=== PATIENT | male | born 1965 | race Caucasian/White ===

== ENCOUNTER 2018-11-16 13:18 | Day surgery (SDC) | payer BC ==
[2018-11-12 16:06] VITALS: BMI 28.8
[~2018-11-16 13:18] MED LIST: LACTATED RINGERS 1,000 ML IV SCH; LIDOCAINE 1% 20 ML VIAL (10MG/ML) FOR IV START INTRADERMA PRN
[2018-11-16 13:35] VITALS: TEMP 97.4
[2018-11-16] MEDS ORDERED: LIDOCAINE 1% 20 ML VIAL (10MG/ML) FOR IV START INTRADERMA ONE (13:40)
[2018-11-16] MEDS ORDERED: LACTATED RINGERS 1,000 ML IV ONE ×2 (13:40)
[2018-11-16] MEDS ORDERED: PROPOFOL 10 MG/ML 20 ML VIAL IV ONE (14:21)
[2018-11-16] MEDS ORDERED: fentaNYL (PF) 50 MCG/ML 2 ML AMP ONE (14:21)
[2018-11-16] MEDS ORDERED: MIDAZOLAM 2 MG/2 ML VIAL ONE (14:21)
[2018-11-16] MEDS ORDERED: LIDOCAINE 1% INJ 10MG/ML (20 ML MDV) ONE (14:21)
[2018-11-16 15:02] VITALS: RESP 16
--- NOTE | 2018-11-16 15:05 | P.PCN ---
Date of Procedure: 11/16/18 Description of Procedure: Brief history: Patient is a pleasant scheduled for an elective upper endoscopy as well as colonoscopy as a part of evaluation of GERD and screening for malignant neoplasm of the colon. He reports a long-standing history of reflux disease currently controlled on Protonix daily, for which she takes an additional omeprazole if he is having worsening symptoms. Last EGD was in 2009. The patient also undergoing high risk colon cancer screening due to family history of colon cancer in his brother diagnosed in his 50s. Last colonoscopy was in 2009 as well. Denies any change in bowel habits, for which she reports a history of diarrhea since the age of [age] years old. Currently he takes Imodium daily. No blood per rectum. Procedure performed: Esophagogastroduodenoscopy with biopsy Colonoscopy with polypectomy and biopsy Estimated blood loss: Minimal. Preoperative diagnosis: GERD, high risk colon cancer screening, family history of colon cancer, last colonoscopy in 2009 Anesthesia: MAC Procedure: After informed consent was obtained from the patient was brought into the endoscopy unit and IV sedation was administered by anesthesia under continuous monitoring. Initially upper endoscopy was done. The Olympus GF 190 video endoscope was inserted inserted into the mouth and esophagus intubated without any difficulty and was gradually advanced into the stomach and duodenum and carefully examined. The bulb and second part of the duodenum appeared normal, with biopsies taken to rule out celiac disease. The scope was then withdrawn into the stomach adequately insufflated with air and upon careful examination the antrum and body, cardia and fundus appeared normal, except for mild scattered erythema in the antrum and body suggestive of mild gastritis with biopsies taken. The scope was then withdrawn into the esophagus. The GE junction was located at 40 cm to the incisors, with biopsies taken. It appeared regular with no erythema erosions or ulcerations. Rest of the esophagus appeared normal. Patient tolerated the procedure well. At this time the patient continued to remain sedation. Initial digital rectal examination was normal. Olympus CF 190 video colonoscope was then inserted into the rectum and gradually advanced to the cecum without any difficulty. The terminal ileum was intubated, appeared normal and biopsies were taken. Careful examination was performed as the scope was gradually being withdrawn. The prep was excellent. The cecum, ascending colon, transverse colon, descending colon, sigmoid colon and rectum appeared normal. 2 diminutive polyps measuring 2 mm removed from the ascending colon and descending colon with cold forcep polypectomy. Mild left-sided diverticulosis. Random biopsies taken of the right colon and left colon. Retroflexion was performed in the rectum and no lesions were noted, patient did have inflamed internal hemorrhoids with some minimal bleeding noted. Patient tolerated the procedure well. Impression: 1. Mild gastritis antrum and body, biopsied. Duodenal biopsies. GE junction biopsies. 2. Diminutive polyps removed with cold forceps from ascending colon and descending colon. Random biopsies of the terminal ileum, right colon and left colon. Mild internal hemorrhoids. Mild diverticulosis. Recommendations: Findings of this examination were discussed with the patient as well as his . Okay to resume diet. Continue current medical treatment. We pathology from biopsies and polypectomies. Recommend repeat colonoscopy 5 years given family history of colon cancer.
[2018-11-16 15:28] VITALS: BP 128/87; PULSE 65
== END 2018-11-16 15:38 | disposition home or self-care (01) ==
LOC: ORWHC2ENDO 13:18
PROVIDERS: ATTEND Internal Medicine
DX: Z12.11 Encounter for screening for malignant neoplasm of colon (principal); Z80.0 Family history of malignant neoplasm of digestive organs; K29.50 Unspecified chronic gastritis without bleeding; K57.90 Diverticulosis of intestine, part unspecified, without perforation or abscess without bleeding; K64.8 Other hemorrhoids; D12.2 Benign neoplasm of ascending colon; D12.4 Benign neoplasm of descending colon; K31.7 Polyp of stomach and duodenum; Z88.0 Allergy status to penicillin; Z87.891 Personal history of nicotine dependence; G62.9 Polyneuropathy, unspecified; Z79.899 Other long term (current) drug therapy
CPT/HCPCS: 88305; 45380; 43239; J2250; J2001; J3010; J2704

== ENCOUNTER → 2018-12-31 | Outpatient (CLI) | payer BC ==
[2018-12-31 11:55] LABS: Appearance,Urine Clear (Clear); Bilirubin,Urine Negative (Negative); Blood,Urine Negative (Negative); Color,Urine Light Yellow; Glucose,Urine (UA) Negative (Negative); Ketones,Urine Negative (Negative); Leukocyte Esterase,Urine Negative (Negative); Nitrite,Urine Negative (Negative); PH, Urine 5.5 (5.0-8.0); Protein,Urine Negative (Negative); Specific Gravity,Urine 1.004 (1.001-1.035); Urobilinogen,Urine <2.0 mg/dL (<2.0)
[2018-12-31 12:02] LABS: INR 0.9 (<1.2); Partial Thromboplastin Time 31.1 sec (22.0-30.0); Prothrombin Time 9.7 sec (9.0-12.0)
[2018-12-31 12:16] LABS: HCT 42.3 % (39.0-53.0); HGB 14.5 gm/dL (13.0-17.5); MCH 31.6 pg (25.0-35.0); MCHC 34.3 g/dL (31.0-37.0); MCV 92.2 fL (80.0-100.0); Mean Platelet Volume 6.5; Platelet Count 234 k/uL (150-450); RBC 4.59 m/uL (4.30-5.90); RDW 12.9 % (11.5-15.5); WBC 5.6 k/uL (3.8-10.6)
[2018-12-31 12:32] LABS: ALT 27 U/L (21-72); AST 26 U/L (17-59); African American GFR (CKD) >90 (>60 ml/min/1.73 sqM); Albumin 4.6 g/dL (3.5-5.0); Alkaline Phosphatase 54 U/L (38-126); Anion Gap 7 mmol/L; Blood Urea Nitrogen 16 mg/dL (9-20); Calcium 9.6 mg/dL (8.4-10.2); Carbon Dioxide 28 mmol/L (22-30); Chloride 105 mmol/L (98-107); Glucose 88 mg/dL (74-99); Potassium 4.3 mmol/L (3.5-5.1); Sodium 140 mmol/L (137-145); Total Bilirubin 1.2 mg/dL (0.2-1.3); Total Protein 7.7 g/dL (6.3-8.2)
== END | disposition home or self-care (01) ==
LOC: LABPAT 11:28
PROVIDERS: ATTEND Orthopaedic Surgery
DX: Z01.812 Encounter for preprocedural laboratory examination (principal); M16.12 Unilateral primary osteoarthritis, left hip
CPT/HCPCS: 80053; 81003; 85027; 85610; 85730

== ENCOUNTER → 2019-01-05 | Outpatient (CLI) | payer BC | END | disposition home or self-care (01) | LOC: LABPAT 16:40 | PROVIDERS: ATTEND Orthopaedic Surgery | DX: Z01.812 Encounter for preprocedural laboratory examination (principal) | CPT/HCPCS: 87070 ==

== ENCOUNTER 2019-01-12 05:34 | Inpatient (IN) | payer BC ==
[~2019-01-12 05:34] MED LIST changes: -LACTATED RINGERS 1,000 ML IV SCH; -LIDOCAINE 1% 20 ML VIAL (10MG/ML) FOR IV START INTRADERMA PRN; +TRANEXAMIC ACID 1,000 MG in SODIUM CHLORIDE 0.9% 100 ML IVPB ONE
[2019-01-12] MEDS ORDERED: MIDAZOLAM 2 MG/2 ML VIAL IV PRN (05:43)
[2019-01-12] MEDS ORDERED: HYDROmorphone 0.5 MG/0.5 ML SYRINGE IVP PRN ×3 (05:43→07:03)
[2019-01-12] MEDS ORDERED: SCOPOLAMINE 1.5MG/72HR PATCH TRANSDERM ONE (05:43)
[2019-01-12] MEDS ORDERED: ROPIVACAINE 246.25 MG, EPINEPHrine 0.5 MG, KETOROLAC 30 MG, cloNIDine HCL/PF 80 MCG, WA... MISCELLANE ONE ×5 (06:00)
[2019-01-12] MEDS: MELOXICAM 7.5 MG TAB PO ONE ×2 (06:11→10:35)
[2019-01-12] MEDS: GABAPENTIN 300 MG CAP PO ONE ×2 (06:11→10:34)
[2019-01-12] MEDS: ACETAMINOPHEN TAB 500 MG TAB PO ONE ×2 (06:11→10:34)
[2019-01-12] MEDS ORDERED: LIDOCAINE 1% 20 ML VIAL (10MG/ML) FOR IV START INTRADERMA ONE (06:36)
[2019-01-12] MEDS: DEXAMETHASONE SOD PHOSPHATE 10 MG/ML 1 ML VIAL IV ONE ×2 (06:36→10:35)
[2019-01-12] MEDS: LACTATED RINGERS 1,000 ML IV SCH (06:36)
[2019-01-12] MEDS: ONDANSETRON 4 MG/2 ML VIAL IVP ONE ×2 (06:37→10:35)
[2019-01-12] MEDS ORDERED: NALOXONE 0.4 MG/ML 1 ML VIAL IV PRN (07:03)
[2019-01-12] MEDS ORDERED: ONDANSETRON 4 MG/2 ML VIAL IVP PRN (07:03)
[2019-01-12] MEDS ORDERED: DIAZEPAM 5 MG TAB PO PRN (07:03)
[2019-01-12] MEDS ORDERED: MAGNESIUM HYDROXIDE 2,400 MG/10 ML CUP PO PRN (07:03)
[2019-01-12] MEDS ORDERED: HYDROcodone/APAP 7.5-325MG 1 EACH TAB PO PRN (07:03)
[2019-01-12] MEDS ORDERED: hydrOXYzine PAMOATE 25 MG CAP PO PRN (07:03)
[2019-01-12] MEDS ORDERED: HEPARIN SODIUM,PORCINE 10,000 UNIT/ML 1 ML VIAL ONE (07:10)
[2019-01-12] MEDS ORDERED: TRANEXAMIC ACID 1,000 MG/10 ML VIAL ONE (07:10)
[2019-01-12] MEDS ORDERED: SODIUM CHLORIDE 0.9% IRRIG 1,000 ML BTL IRRIGATION ONE (07:10)
[2019-01-12] MEDS ORDERED: SODIUM CHLORIDE 0.9% 100 ML BAG ONE (07:10)
[2019-01-12] MEDS ORDERED: LIDOCAINE 1% INJ 10MG/ML (20 ML MDV) ONE (07:10)
[2019-01-12] MEDS ORDERED: PROPOFOL 10 MG/ML 20 ML VIAL IV ONE (07:10)
[2019-01-12] MEDS ORDERED: MIDAZOLAM 2 MG/2 ML VIAL ONE (07:10)
[2019-01-12] MEDS ORDERED: ceFAZolin 3,000 MG in SODIUM CHLORIDE 0.9% IRRIGATIO 3,000 ML IRRIGATION ONE (07:11)
--- NOTE | 2019-01-12 09:05 | P.OP ---
Date of Procedure: 01/12/19 Preoperative Diagnosis: Severe osteoarthritis left hip Postoperative Diagnosis: Severe osteoarthritis left hip Procedure(s) Performed: Left total hip arthroplasty with a direct anterior approach Implants: [employer] nephew Polarstem size 3 standard [employer]hew R3, 3 hole acetabular shell, 52 mm [employer] reflection 6.5 mm cancellus screw, 20 mm 2 [employer] R3, XLPE 20 acetabular liner [employer]hew Oxinium femoral head 36 m, +4 All components were press-fit. The articulation is Oxinium on polyethylene. Anesthesia: spinal Surgeon: Kenn Heath Instructor Adjunct Surgical Technician #1: Lisa Coats Estimated Blood Loss (ml): 200 (64 mL returned with Cell Saver) Pathology: other (Femoral head) Condition: stable Disposition: PACU Indications for Procedure: After failure of conservative treatment we discussed the surgical and nonsurgical treatment options at length. Patient wishes to proceed with a total hip arthroplasty with a direct anterior approach. Complications specific to this procedure were discussed at length, including but not limited to infection, leg length discrepancy, dislocation, and nerve injury. Patient is aware of all these complications and informed consent was obtained Operative Findings: The operative findings are consistent with severe osteoarthritis of the left hip Description of Procedure: Patient was seen and evaluated in the preoperative area, consent was reviewed, and the surgical site was marked with a skin marker. Patient was then brought to the operating room and given prophylactic antibiotics intravenously. 1 g of Tranexamic acid was also given. A spinal anesthetic was administered by the anesthesia department. The patient was then placed on the [place] table with the bony prominences well-padded. The hip area was then prepped and draped in usual sterile fashion. A universal timeout was then performed, which confirmed the patient's name, surgical site, ALLERGIES, and procedure being performed. Next the incision site was located at 1 cm distal and 1 cm lateral to the anterior superior iliac spine. The skin and subcutaneous tissues were sharply incised. Incision was carefully dissected down to the fascia overlying the tensor fascia domo muscle. This fascia was then incised in line with the incision. Next, using blunt finger dissection, the tensor fascia domo muscle was dissected off its investing fascia. The muscle was then carefully retracted laterally with a cobra retractor over the lateral neck of the femur. Next, the circumflex vessels were identified and cauterized using the AquaMantis device. The anterior hip capsule was then exposed. The capsule was then opened and an inverted T fashion. Cobra retractors were then placed intracapsularly. The proximal femur was then visu alized. The femoral neck was then osteotomized appropriate level above the lesser trochanter. Small amount of traction was placed with the [place] table. A small wedge of bone was then removed from the remaining femoral head. Next, using a corkscrew femoral head was easily removed from the acetabulum. On gross visual inspection, the femoral head had complete loss of articular cartilage in multip le periarticular osteophytes. Attention was then turned to the acetabulum. the acetabulum was exposed and any remaining labrum was excised. Sequential reaming of the acetabulum was performed using fluoroscopic guidance. When the appropriate size was reached, a trial was then placed. The position and fit of the trial was checked with fluoroscopy. The trial was then removed. Then, using fluoroscopic guidance, the final implant was impacted at 20 of anteversion and 40 of abduction, and fully seated in the acetabulum. 2 screws were then placed in the acetabulum. Again fluoroscopy was used to check position of the screws. Next, the liner was then impacted, with a 20 elevated liner located in the anterior superior quadrant. Component locking was confirmed. Attention was then directed to the femur. With the aid of the [place] table, the femur was externally rotated to approximately 130, extended, and abducted under the opposite leg. A side hook was then placed under the proximal femur, and the side hook elevator was used to elevate the proximal femur. Retractors were then placed. A capsular release was performed, as well as a release of the conjoined tendon, which afforded excellent visualization of the proximal femur. Next, a box osteotome was used to lateralize the proximal femur. A creel hand was then used to locate the femoral canal. Sequential broaching was then performed with appropriate size which afforded excellent fixation in the proximal femur. A trial was then placed with appropriate head and neck, and the hip was gently reduced with the aid of the [place] table. Fluoroscopy was then used to check position of the components, as well as to ensure equal leg lengths. The hip was then gently dislocated and the trials were then removed. Final implants were then impacted and the hip was again reduced. Final fluoroscopic x-rays confirmed that the components were in anatomic position, as well as equal leg lengths. The hip was also taken through range of motion, and found to be stable. The hip was then copiously irrigated with antibiotic solution with pulsatile lavage. The hip was then irrigated with Irrisept solution. The soft tissues were then injected with a ropivacaine solution, which consisted of 246.25 mg of ropivacaine, 0.5 mg of epinephrine, 30 mg of Toradol, 80 g of clonidine, and 48.45 mL of sterile water, for a total of 100 mL of fluid injected. A second dose of 1 g of Tranexamic acid was also given. the fascia was then closed with 2-0 strata fix suture. The subcutaneous tissue was closed with 3-0 Vicryl. The subcuticular tissue was closed with 3-0 strata fix suture. The skin was then closed with Dermabond glue and a sterile silver dressing. The patient was then transferred to the recovery room in stable condition. The assistant director of residence life ADOLFO Ford was required due to the complexity of surgery, and the need for skilled instructor adjunct surgical technician for positioning, draping, exposure, retraction, and closure of the wound.
[2019-01-12] MEDS ORDERED: LACTATED RINGERS 1,000 ML IV ONE (09:07)
[2019-01-12] MEDS ORDERED: diphenhydrAMINE 50 MG/ML 1 ML VIAL IVP ONE (09:25)
--- NOTE | 2019-01-12 09:43 | XR ---
Left hip HISTORY: Status post left hip arthroplasty Single frontal view of the left hip Patient is status post left hip arthroplasty. Lucency is present in the soft tissues. There is anatom ic alignment. Crescentic density inferior to the acetabular component may be postoperative, correlate . IMPRESSION: Orthopedic follow-up as described. Indeterminate crescentic density.
--- NOTE | 2019-01-12 10:14 | XR ---
EXAMINATION TYPE: XR Hip Limited LT, FL guidance operating room DATE OF EXAM: 01/12/2019 CLINICAL HISTORY: Fluoroscopic documentation during left hip arthroplasty. TECHNIQUE: Fluoroscopy. COMPARISON: None. FINDINGS: Fluoroscopic guidance was provided during procedure performed by Dr. Heath. A total of 58 seconds of fluoroscopic time was utilized during the procedure and 2 spot images was acquired dur ing left hip arthroplasty. IMPRESSION: As Above.
[2019-01-12 10:20] VITALS: BMI 28.6
[2019-01-12] MEDS: SODIUM CHLORIDE 0.9% 1,000 ML IV SCH (10:35)
[2019-01-12] MEDS: HYDROmorphone 1 MG/ML 1 ML SYRINGE IVP PRN ×2 (12:20→15:03)
[2019-01-12] MEDS: HYDROcodone/APAP 7.5-325MG 1 EACH TAB PO PRN ×2 (13:27→20:56)
[2019-01-12] MEDS: ASPIRIN 325 MG TAB PO SCH (20:56)
[2019-01-12] MEDS ORDERED: SENNOSIDES-DOCUSATE SODIUM 1 EACH TAB PO SCH (21:00)
--- NOTE | 2019-01-12 21:56 | P.CONS ---
History of Present Illness - Reason for Consult Consult date: 01/12/19 Medical management - Chief Complaint Status post left total hip arthroplasty - History of Present Illness Patient is a 53-year-old male with a known history of GERD, vascular neuropathy and history of colitis and previous history of smoking was admitted to the hospital for left hip arthroplasty due to Severe osteoarthritis left hip. Patient underwent Left total hip arthroplasty with a direct anterior approach. Patient tolerated the procedure very well. Currently patient is controlled with medications. No compressive fever or chills. No nausea vomiting or abdominal pain. Next and no chest pain or shortness of breath. No headache or dizziness or lightheadedness. Postoperatively patient systolic blood pressure went down to 90s. Review of Systems Constitutional: Patient denies any fever or chills . No generalized weakness or weight loss. Abdomen: Patient denied nausea vomiting and diarrhea and abdominal pain. Cardiovascular: Patient denies any chest pain or short of breath no palpitations. Respiratory: patient denied any cough is from production. No shortness of breath Neurologic: Patient denied any numbness or tingling headache. Musculoskeletal: Patient denies any complaints of joint swelling or deformity. Skin: Negative Psychiatric: Negative Endocrine: No heat or cold intolerance. No recent weight gain. Genitourinary: No dysuria or hematuria. All other 14 point ROS negative except the above Past Medical History Past Medical History: GERD/Reflux Additional Past Medical History / Comment(s): vascular neuropathy, colitis, History of Any Multi-Drug Resistant Organisms: None Reported Past Surgical History: Appendectomy, Orthopedic Surgery Additional Past Surgical History / Comment(s): oral surgery, left hand surgery Past Anesthesia/Blood Transfusion Reactions: Previous Problems w/ Anesthesia Additional Past Anesthesia/Blood Transfusion Reaction / Comm: "brother went into cardiac arrest"-not sure why, surgery was not done [facility]( pt will check with brother and call PAT back if he finds out any additional info) Past Psychological History: No Psychological Hx Reported Smoking Status: Former smoker Past Alcohol Use History: Daily Additional Past Alcohol Use History / Comment(s): quit smoking 3 yrs ago, smoked for 20 yrs, 1 PPD Past Drug Use History: None Reported - Past Family History Brother(s) Family Medical History: Cancer Medications and Allergies Home Medications Medication Instructions Recorded Confirmed Type Aspirin [Adult Low Dose Aspirin EC] 81 mg PO DAILY 11/12/18 01/12/19 History Loperamide HCl [Imodium A-D] 2 mg PO BID PRN 11/12/18 01/12/19 History Omeprazole 40 mg PO DAILY PRN 11/12/18 01/12/19 History Pantoprazole Sodium 40 mg PO DAILY PRN 11/12/18 01/12/19 History oxyCODONE HCL/ACETAMINOPHEN 0.5 tab PO Q6HR PRN 11/12/18 01/12/19 History [Percocet 7.5-325 mg] Sildenafil Citrate [Viagra] 25 mg PO ONCE PRN 01/04/19 01/12/19 History Allergies Allergy/AdvReac Type Severity Reaction Status Date / Time Penicillins Allergy Rash/Hives Verified 01/12/19 05:57 Physical Exam Vitals: Vital Signs Temp Pulse Resp BP Pulse Ox 01/12/19 10:30 59 L 16 01/12/19 09:30 59 L 16 106/59 100 01/12/19 09:15 63 16 113/59 100 01/12/19 09:09 97.3 F L 68 12 110/56 95 01/12/19 06:00 97.7 F 63 16 139/72 96 Intake and Output 01/11/19 01/12/19 01/12/19 22:59 06:59 14:59 Intake Total 200 851 Output Total 200 Balance 200 651 Intake: IV 200 851 Output: Estimated Blood Loss 200 Other: Weight 85.275 kg PHYSICAL EXAMINATION: Patient is lying in the bed comfortably, no acute distress, awake alert and oriented.. HEENT: Normocephalic. Neck is supple. Pupils reactive. Nostrils clear. Oral cavity is moist. Ears reveal no drainage. Neck reveals no JVD, carotid bruits, or thyromegaly. CHEST EXAMINATION: Trachea is central. Symmetrical expansion. Lung wright clear to auscultation and percussion. CARDIAC: Normal S1, S2 with no gallops. No murmurs ABDOMEN: Soft. Bowel sounds normal. No organomegaly. No abdominal bruits. Extremities: reveal no edema. No clubbing or cyanosis Neurologically awake, alert, oriented x3 with well-coordinated movements. No focal deficits noted Skin: No rash or skin lesions. Psychiatric: Coperative. Nonsuicidal Musculoskeletal: No joint swelling or deformity. Normal range of motion. Assessment and Plan Assessment: Status post left total hip arthroplasty due to severe osteoarthritis Postoperative hypotension. Improved now GERD Vascular neuropathy. History of colitis Previous history of smoking Daily alcohol use DVT prophylaxis. Plan: Patient will be continued on pain management, bowel regimen and incentive spirometry. Continue with DVT prophylaxis. Encourage ambulation. Continue with PPI. Blood pressure improved now. Further recommendations based on the clinical course. Monitor for alcohol withdrawal symptoms. We'll continue to fo llow with you. Time with Patient: Greater than 30
[2019-01-13] MEDS ORDERED: HYDROmorphone 1 MG/ML 1 ML SYRINGE ONE (01:00)
[2019-01-13] MEDS ORDERED: HYDROcodone/APAP 7.5-325MG 1 EACH TAB ONE (01:00)
[2019-01-13] MEDS: LACTATED RINGERS 1,000 ML IV SCH (07:37)
[2019-01-13] MEDS: SODIUM CHLORIDE 0.9% 1,000 ML IV SCH (07:37)
[2019-01-13] MEDS: ASPIRIN 325 MG TAB PO SCH (07:41)
[2019-01-13 08:23] VITALS: BP 105/61; RESP 16; TEMP 97.9
[2019-01-13 08:28] LABS: Basophils # (A) 0.1 k/uL (0-0.2); Basophils % (A) 1 %; Eosinophils # (A) 0.1 k/uL (0-0.7); Eosinophils % (A) 1 %; HCT 38.1 % (39.0-53.0); HGB 12.4 gm/dL (13.0-17.5); Lymphocytes # (A) 1.7 k/uL (1.0-4.8); Lymphocytes % (A) 13 %; MCH 30.9 pg (25.0-35.0); MCHC 32.6 g/dL (31.0-37.0); MCV 94.7 fL (80.0-100.0); Mean Platelet Volume 7.2; Monocytes % (A) 8 %; Neutrophils # (A) 9.9 k/uL (1.3-7.7); Neutrophils % (A) 76 %; Platelet Count 192 k/uL (150-450); RBC 4.02 m/uL (4.30-5.90); RDW 12.8 % (11.5-15.5)
[2019-01-13] MEDS ORDERED: MELOXICAM 7.5 MG TAB PO SCH (09:00)
[2019-01-13] MEDS ORDERED: HYDROcodone/APAP 10-325MG 1 EACH TAB PO PRN ×2 (09:07)
--- NOTE | 2019-01-13 09:14 | P.DS ---
Providers Date of admission: 01/12/19 05:34 Expected date of discharge: 01/13/19 Attending physician: Kenn Heath Consults: 01/12/19 07:03 Consult Physician Routine Consulting Provider: Angelo Alegre Consult Reason/Comments: medical management Do you want consulting provider notified?: Yes Primary care physician: Cadence Kay - Discharge Diagnosis(es) (1) Avascular necrosis of bone of left hip Current Visit: Yes Status: Acute (2) S/P total hip arthroplasty Current Visit: Yes Status: Acute Hospital Course: This is a 53-year-old male with known history of avascular necrosis of the left hip. The patient presents for evaluation. After discussion and consideration patient elects to proceed with total hip arthroplasty. The patient is seen preoperatively by Dr. Heath and medically cleared for surgery by their primary care physician. Patient is admitted to [facility] on 01/12/2019 for total hip arthroplasty. The procedures performed without complication or sequelae. The patient is doing well postoperatively. Labs and vital signs are stable on day of discharge. On day of discharge patient's hip incision is healing well. There is minimal erythema. There is no drainage noted at this time. There is minimal soft tissue swelling to the hip and thigh. Patient has full foot and ankle motion without difficulty or pain. Calf is soft and nontender to palpation. Neurovasc ular status to the left lower extremity is intact. Patient is discharged home in good condition. Opioid start talking form is reviewed and signed at patient bedside. Please see med rec for accurate list of home medications. Plan - Discharge Summary Discharge Rx Participant: No New Discharge Prescriptions: New Aspirin 325 mg PO BID #60 tab HYDROcodone/APAP 10-325MG [[place] 10-325] 1 tab PO Q4-6H PRN #42 tab PRN Reason: Pain Sennosides [Senokot] 1 tab PO BID #60 tablet No Action oxyCODONE HCL/ACETAMINOPHEN [Percocet 7.5-325 mg] 0.5 tab PO Q6HR PRN PRN Reason: Pain Pantoprazole Sodium 40 mg PO DAILY PRN PRN Reason: GERD Loperamide HCl [Imodium A-D] 2 mg PO BID PRN PRN Reason: Diarrhea Aspirin [Adult Low Dose Aspirin EC] 81 mg PO DAILY Omeprazole 40 mg PO DAILY PRN PRN Reason: Heartburn Sildenafil Citrate [Viagra] 25 mg PO ONCE PRN PRN Reason: ERECTILE DYSFUNCTION Discharge Medication List Aspirin [Adult Low Dose Aspirin EC] 81 mg PO DAILY 11/12/18 [History] Loperamide HCl [Imodium A-D] 2 mg PO BID PRN 11/12/18 [History] Omeprazole 40 mg PO DAILY PRN 11/12/18 [History] Pantoprazole Sodium 40 mg PO DAILY PRN 11/12/18 [History] oxyCODONE HCL/ACETAMINOPHEN [Percocet 7.5-325 mg] 0.5 tab PO Q6HR PRN 11/12/18 [History] Sildenafil Citrate [Viagra] 25 mg PO ONCE PRN 01/04/19 [History] Aspirin 325 mg PO BID #60 tab 01/13/19 [Rx] HYDROcodone/APAP 10-325MG [[place] 10-325] 1 tab PO Q4-6H PRN #42 tab 01/13/19 [Rx] Sennosides [Senokot] 1 tab PO BID #60 tablet 01/13/19 [Rx] Follow up Appointment(s)/Referral(s): Kenn Heath DO [Doctor of Osteopathic Medicine] - 2 Weeks Activity/Diet/Wound Care/Special Instructions: Weightbearing as tolerated with walker. Leave dressing intact. Dressing may be removed by home care nurse or by patient in 10 days. May shower with dressing on. Recommend use of compression stockings daily for at least 2 weeks during the day to help prevent swelling and blood clots. May remove at night before sleeping. Please follow-up with [facility] in 2 weeks and call with any questions or concerns, . Discharge Disposition: HOME WITH HOME HEALTH SERVICES
[2019-01-13 10:41] VITALS: PULSE 65
== END 2019-01-13 11:45 | disposition home health service (06) | DRG 470 ==
LOC: 2ORMAIN 05:34 → 4SSUR 10:05
PROVIDERS: ADMIT Orthopaedic Surgery; ATTEND Orthopaedic Surgery
PROC: 0SRB06A Replacement of Left Hip Joint with Oxidized Zirconium on Polyethylene Synthetic Substitute, Uncemented, Open Approach (ICD-10-PCS; principal; 2019-01-12 07:00)
DX: M16.12 Unilateral primary osteoarthritis, left hip (principal); M87.9 Osteonecrosis, unspecified; G62.9 Polyneuropathy, unspecified; K21.9 Gastro-esophageal reflux disease without esophagitis; Z79.82 Long term (current) use of aspirin; Z82.41 Family history of sudden cardiac death; Z87.891 Personal history of nicotine dependence; Z79.891 Long term (current) use of opiate analgesic; Z79.899 Other long term (current) drug therapy; Z88.0 Allergy status to penicillin; I95.9 Hypotension, unspecified
CPT/HCPCS: 73501; 85025; 86850; 86891; 86900; 86901; 88300

== ENCOUNTER 2021-09-03 12:22 | Emergency (ER) | payer BC, OTHER ==
[2021-09-03 12:27] VITALS: RESP 18; TEMP 97.7
[2021-09-03] MEDS ORDERED: SODIUM CHLORIDE 0.9% 1,000 ML IV STA (12:56)
[2021-09-03] MEDS ORDERED: ONDANSETRON 4 MG/2 ML VIAL IVP STA (12:56)
[2021-09-03] MEDS ORDERED: HYDROmorphone 0.5 MG/0.5 ML SYRINGE IVP STA (12:56)
--- NOTE | 2021-09-03 13:11 | ED ---
Abdominal Pain HPI - General Chief Complaint: Abdominal Pain Stated Complaint: abd pain Time Seen by Provider: 09/03/21 12:39 Source: patient, RN notes reviewed Mode of arrival: ambulatory Limitations: no limitations - History of Present Illness Initial Comments: This a 55-year-old male presents emergency Department chief complaint left lower quadrant abdominal pain. Patient states he has a long history of diarrhea which is been chronic in nature he has had prior EGD and colonoscopy. Patient states he has a history of diverticulosis, colitis. Patient has been on multiple medications for chronic diarrhea with no resolution. He states she's been having increasing pain of recent. He denies any recent fever no nausea diarrhea is present. He has no dysuria. - Related Data Home Medications Medication Instructions Recorded Confirmed Loperamide HCl [Imodium A-D] 2 - 4 mg PO QID PRN 11/12/18 09/03/21 Omeprazole 40 mg PO DAILY 11/12/18 09/03/21 Bismuth Subsalicylate [Kaopectate] 524 mg PO Q30M PRN MDD 8 doses 09/03/21 09/03/21 Meloxicam [Mobic] 7.5 mg PO BID PRN 09/03/21 09/03/21 Previous Rx's Medication Instructions Recorded Ciprofloxacin HCl [Cipro] 500 mg PO Q12HR #14 tablet 09/03/21 metroNIDAZOLE [Flagyl] 500 mg PO TID #21 tab 09/03/21 Allergies Allergy/AdvReac Type Severity Reaction Status Date / Time Penicillins Allergy Rash/Hives Verified 09/03/21 14:19 Review of Systems ROS Statement: Those systems with pertinent positive or pertinent negative responses have been documented in the HPI. ROS Other: All systems not noted in ROS Statement are negative. Past Medical History Past Medical History: GERD/Reflux Additional Past Medical History / Comment(s): vascular neuropathy, colitis, History of Any Multi-Drug Resistant Organisms: None Reported Past Surgical History: Appendectomy, Orthopedic Surgery Additional Past Surgical History / Comment(s): oral surgery, left hand surgery Past Anesthesia/Blood Transfusion Reactions: Previous Problems w/ Anesthesia Additional Past Anesthesia/Blood Transfusion Reaction / Comment(s): "brother went into cardiac arrest"-not sure why, surgery was not done [facility]( pt will check with brother and call PAT back if he finds out any additional info) Past Psychological History: No Psychological Hx Reported Smoking Status: Never smoker Past Alcohol Use History: Occasional Past Drug Use History: None Reported - Past Family History Brother(s) Family Medical History: Cancer General Exam Limitations: no limitations General appearance: alert, in no apparent distress Head exam: Present: atraumatic, normocephalic, normal inspection Eye exam: Present: normal appearance, PERRL, EOMI. Absent: scleral icterus, conjunctival injection, periorbital swelling ENT exam: Present: normal exam, normal oropharynx, mucous membranes moist Neck exam: Present: normal inspection, full ROM. Absent: tenderness, meni ngismus, lymphadenopathy Respiratory exam: Present: normal lung sounds bilaterally. Absent: respiratory distress, wheezes, rales, rhonchi, stridor Cardiovascular Exam: Present: regular rate, normal rhythm, normal heart sounds. Absent: systolic murmur, diastolic murmur, rubs, gallop, clicks GI/Abdominal exam: Present: soft, tenderness (Left lower quadrant), normal bowel sounds. Absent: distended, guarding, rebound, rigid Course Vital Signs 09/03/21 12:24 Temperature 97.7 F Pulse Rate 72 Respiratory 18 Rate Blood Pressure 150/75 O2 Sat by Pulse 97 Oximetry Medical Decision Making - Medical Decision Making 55-year-old male presented from for left lower quadrant abdominal pain. CT does not reveal any significant findings so patient does have a history of diverticulosis, concerning for early diverticulitis. Patient labs within normal limits. Patient discharged and oral antibiotics return parameters discussed. - Lab Data Result diagrams: 09/03/21 13:03 09/03/21 13:03 Lab Results 09/03/21 09/03/21 09/03/21 Range/Units 13:03 13:03 13:03 WBC 9.4 (3.8-10.6) k/uL RBC 5.19 (4.30-5.90) m/uL Hgb 15.4 (13.0-17.5) gm/dL Hct 46.7 (39.0-53.0) % MCV 89.9 (80.0-100.0) fL MCH 29.7 (25.0-35.0) pg MCHC 33.0 (31.0-37.0) g/dL RDW 13.2 (11.5-15.5) % Plt Count 242 (150-450) k/uL MPV 7.9 Sodium 140 (137-145) mmol/L Potassium 4.3 (3.5-5.1) mmol/L Chloride 108 H (98-107) mmol/L Carbon Dioxide 23 (22-30) mmol/L Anion Gap 9 mmol/L BUN 21 H (9-20) mg/dL Creatinine 0.82 (0.66-1.25) mg/dL Est GFR (CKD-EPI)AfAm >90 (>60 ml/min/1.73 sqM) Est GFR (CKD-EPI)NonAf >90 (>60 ml/min/1.73 sqM) Glucose 91 (74-99) mg/dL Plasma Lactic Acid Zackery 1.1 (0.7-2.0) mmol/L Calcium 9.2 (8.4-10.2) mg/dL Total Bilirubin 0.7 (0.2-1.3) mg/dL AST 28 (17-59) U/L ALT 24 (4-49) U/L Alkaline Phosphatase 57 (38-126) U/L Total Protein 7.7 (6.3-8.2) g/dL Albumin 4.6 (3.5-5.0) g/dL Amylase 91 (30-110) U/L Lipase 118 (23-300) U/L Disposition Clinical Impression: Abdominal pain, Diverticulitis Disposition: HOME SELF-CARE Condition: Stable Instructions (If sedation given, give patient instructions): Abdominal Pain (ED), Diverticulitis (ED), Diverticulitis Diet (ED) Additional Instructions: Please return to the Emergency Department if symptoms worsen or any other concerns. Prescriptions: Ciprofloxacin HCl [Cipro] 500 mg PO Q12HR #14 tablet metroNIDAZOLE [Flagyl] 500 mg PO TID #21 tab Is patient prescribed a controlled substance at d/c from ED?: No Referrals: Cadence Kay DO [Primary Care Provider] - 1-2 days Time of Disposition: 14:38
[2021-09-03 14:05] LABS: Basophils # (A) 0.1 k/uL (0-0.2); Basophils % (A) 2 %; Eosinophils # (A) 0.4 k/uL (0-0.7); Eosinophils % (A) 5 %; HCT 46.7 % (39.0-53.0); HGB 15.4 gm/dL (13.0-17.5); Lymphocytes # (A) 1.9 k/uL (1.0-4.8); Lymphocytes % (A) 20 %; MCH 29.7 pg (25.0-35.0); MCV 89.9 fL (80.0-100.0); Mean Platelet Volume 7.9; Monocytes # (A) 0.7 k/uL (0-1.0); Monocytes % (A) 7 %; Neutrophils % (A) 64 %; Platelet Count 242 k/uL (150-450); RBC 5.19 m/uL (4.30-5.90); RDW 13.2 % (11.5-15.5); WBC 9.4 k/uL (3.8-10.6)
[2021-09-03 14:06] LABS: ALT 24 U/L (4-49); AST 28 U/L (17-59); African American GFR (CKD) >90 (>60 ml/min/1.73 sqM); Albumin 4.6 g/dL (3.5-5.0); Alkaline Phosphatase 57 U/L (38-126); Amylase 91 U/L (30-110); Anion Gap 9 mmol/L; Blood Urea Nitrogen 21 mg/dL (9-20); Calcium 9.2 mg/dL (8.4-10.2); Carbon Dioxide 23 mmol/L (22-30); Chloride 108 mmol/L (98-107); Glucose 91 mg/dL (74-99); Lipase 118 U/L (23-300); Non-African American GFR(CKD) >90 (>60 ml/min/1.73 sqM); Potassium 4.3 mmol/L (3.5-5.1); Sodium 140 mmol/L (137-145); Total Bilirubin 0.7 mg/dL (0.2-1.3); Total Protein 7.7 g/dL (6.3-8.2)
--- NOTE | 2021-09-03 14:21 | CT ---
EXAMINATION TYPE: CT abdomen pelvis w con DATE OF EXAM: 09/03/2021 COMPARISON: None available HISTORY: LLQ abdominal pain and diarrhea. CT DLP: 1518.8 mGycm Automated exposure control for dose reduction was used. TECHNIQUE: Helical acquisition of images was performed from the lung bases through the pelvis. CONTRAST: Performed without Oral Contrast and with IV Contrast, patient injected with 100ml mL of Isovue 300. FINDINGS: LUNG BASES: Peripheral pulmonary reticulations/densities, nonspecific. LIVER/GB: No significant abnormality is appreciated. PANCREAS: No significant abnormality is seen. SPLEEN: No significant abnormality is seen. ADRENALS: No significant abnormality is seen. KIDNEYS: Tiny left renal cysts, otherwise unremarkable kidneys. FREE AIR: No free air is visualized. RETROPERITONEAL ADENOPATHY: None visualized REPRODUCTIVE ORGANS: No significant abnormality is seen URINARY BLADDER: No significant abnormality is seen. PELVIC ADENOPATHY: No pathologically enlarged pelvic lymph nodes. OSSEOUS STRUCTURES: Left total hip arthroplasty. Degenerative changes of the right hip joint and lef t sacroiliac joint. BOWEL: Unremarkable nondistended stomach, duodenum and small bowel. Scattered uncomplicated colonic diverticulosis. OTHER: Minimal arterial atherosclerotic calcifications. No sizable ascites. Left fat-containing ingui nal hernia. Small fat-containing umbilical hernia. IMPRESSION: No definite acute abnormality seen in the abdomen or the pelvis. Incidental findings as described abo ve.
[2021-09-03] MEDS ORDERED: ACET/COD 300 MG/30 MG STARTER PACK 6 TAB BTL PO STA (14:38)
[2021-09-03] MEDS ORDERED: DIPHENOX-ATROP STARTER PACK 8 TAB BTL PO STA (14:42)
[2021-09-03 14:46] LABS: Appearance,Urine Clear (Clear); Bilirubin,Urine Negative (Negative); Blood,Urine Negative (Negative); Color,Urine Light Yellow; Glucose,Urine (UA) Negative (Negative); Ketones,Urine Negative (Negative); Leukocyte Esterase,Urine Negative (Negative); Nitrite,Urine Negative (Negative); Protein,Urine Negative (Negative); Urobilinogen,Urine <2.0 mg/dL (<2.0)
[2021-09-03 14:47] LABS: Specific Gravity,Urine >1.050 (1.001-1.035)
[2021-09-03 14:52] LABS: RBC Morphology Normal
[2021-09-03 15:12] VITALS: BP 139/68; PULSE 78
== END 2021-09-03 15:12 | disposition home or self-care (01) ==
LOC: EC 12:22
DX: K57.90 Diverticulosis of intestine, part unspecified, without perforation or abscess without bleeding (principal); K21.9 Gastro-esophageal reflux disease without esophagitis; Z79.83 Long term (current) use of bisphosphonates; Z88.0 Allergy status to penicillin
CPT/HCPCS: 36415; 80053; 82150; 83605; 83690; 85025; 81003; 74177; 99284; 96374; 96375; 96361; J2405; J1170; Q9967

== ENCOUNTER 2023-11-07 07:45 | Day surgery (SDC) | payer BC ==
[~2023-11-07 07:45] MED LIST changes: +LACTATED RINGERS 1,000 ML BAG ONE; -TRANEXAMIC ACID 1,000 MG in SODIUM CHLORIDE 0.9% 100 ML IVPB ONE
[2023-11-07] MEDS ORDERED: PROPOFOL 10 MG/ML 20 ML VIAL IV ONE (07:55)
[2023-11-07] MEDS ORDERED: LIDOCAINE 1% INJ 10MG/ML (20 ML MDV) ONE (07:55)
--- NOTE | 2023-11-28 17:12 | P.PCN ---
Date of Procedure: 11/07/23 Procedure(s) Performed: This an addendum to the procedure that was performed on 11/07/2023 Procedure performed colonoscopy Procedure: Scope was advanced to the cecum. Careful examination was performed. Colonoscopy was completely within normal limits. Patient tolerated the procedure well.
== END 2023-11-07 09:41 ==
LOC: ORWHC2ENDO 07:45
PROVIDERS: ATTEND Internal Medicine Gastroenterology
DX: Z12.11 Encounter for screening for malignant neoplasm of colon (principal); K21.9 Gastro-esophageal reflux disease without esophagitis; G47.33 Obstructive sleep apnea (adult) (pediatric); Z90.49 Acquired absence of other specified parts of digestive tract; Z79.899 Other long term (current) drug therapy; Z80.0 Family history of malignant neoplasm of digestive organs
CPT/HCPCS: 45378